=== PATIENT | male | born 1965 | race Caucasian/White ===

== ENCOUNTER 2023-10-18 00:53 | Outpatient (CLI) | payer BC, SELFPAY ==
--- NOTE | 2023-10-18 08:00 | DI.RAD_ITS ---
Exam(s) XR FOOT LT COMPLETE EXAM: XR FOOT LT COMPLETE CLINICAL HISTORY: Left foot pain,M79.672. TECHNIQUE: 2D digital imaging was performed. Three views. COMPARISON: No exams were available for comparison FINDINGS: BONES: No acute fracture is present. No bony destructive lesion is seen. Small enthesophyte at Achi lles insertion. JOINTS: No dislocation present. Mild degenerative changes at 1st MTP joint. Equinus deformity. SOFT TISSUE: Normal. IMPRESSION: Equinus deformity. DATA REPOSITORY: RADIATION DOSE DELIVERED:
== END 2023-10-18 01:13 ==
LOC: DI 00:53
PROVIDERS: PCP Family Medicine; Visit Provider Podiatrist
DX: M79.672 Pain in left foot (principal)
CPT/HCPCS: 73630